=== PATIENT | female | born 1985 | race Caucasian/White ===

== ENCOUNTER 2021-02-08 14:30 | Outpatient (CLI) | payer OTHER ==
[2021-02-09 11:01] LABS: SARS-CoV-2 NAA Rapid Test Not Detected (NotDetected)
== END 2021-02-08 14:31 | disposition home or self-care (01) ==
LOC: CSHLAB 14:30
PROVIDERS: ATTEND Obstetrics & Gynecology
DX: Z20.822 Contact with and (suspected) exposure to COVID-19 (principal)
CPT/HCPCS: U0002; U0003; U0005

== ENCOUNTER 2021-06-05 11:11 | Day surgery (SDC) | payer OTHER ==
[2021-05-30 11:32] VITALS: BMI 29.2
[2021-06-04 10:15] LABS: Hemoglobin 13.3 g/dL (12.0-15.5); Mean Corpuscular HGB CONC 32.3 g/dL (32.0-36.0); Mean Corpuscular Hemoglobin 30.2 pg (27.0-33.0); Mean Corpuscular Volume 93.6 fl (81.6-98.3); Mean Platelet Volume 10.7 fl (7.4-10.4); Platelet Count 280 10x3/uL (150-450); RBC Distribution Width 11.9 % (11.5-14.5); White Blood Cell (WBC) Count 4.6 10x3/uL (3.5-10.5)
[2021-06-04 10:29] LABS: BHCG - Serum Negative (NEGATIVE); Pregs Control Background? CLEAR/WHITE (CLR/WHITE); Pregs Control Bar Appear? YES (CONTROL BAR)
[2021-06-04 21:59] LABS: SARS-CoV-2 PCR by NAA Not Detected (NotDetected)
[2021-06-05] MEDS ORDERED: Gabapentin 300 MG CAP ONE (11:18)
[2021-06-05] MEDS ORDERED: CeleCOXIB 100 MG CAP ONE (11:18)
[2021-06-05] MEDS ORDERED: Lidocaine 1% MPF 2 ML VIAL ONE (11:18)
[2021-06-05] MEDS ORDERED: Bupivacaine PF 0.5% 30 ML VIAL ONE (13:09)
[2021-06-05] MEDS ORDERED: EPINEPHrine 1 MG/ML AMP ONE (13:09)
[2021-06-05] MEDS ORDERED: Ketorolac Tromethamine 30 MG/ML VIAL ONE (13:12)
[2021-06-05] MEDS ORDERED: Rocuronium Bromide 10 MG/ML (10ML VIAL) ONE (13:12)
[2021-06-05] MEDS ORDERED: Ondansetron PF 4 MG/2 ML Vial ONE (13:12)
[2021-06-05] MEDS ORDERED: Fentanyl 100 MCG/2 ML VIAL ONE (13:12)
[2021-06-05] MEDS ORDERED: PROPOFOL 20 ML ONE (13:12)
[2021-06-05] MEDS ORDERED: Dexamethasone 20 MG/5 ML VIAL ONE (13:12)
[2021-06-05] MEDS ORDERED: Midazolam HCl 2 mg/2 ml Vial ONE (13:12)
[2021-06-05] MEDS ORDERED: Glycopyrrolate 0.2 MG/ML 5 ML SYRINGE ONE (13:13)
[2021-06-05] MEDS ORDERED: Meperidine HCl/PF 25 MG/ML VIAL ONE (14:19)
== END 2021-06-05 16:00 | disposition home or self-care (01) ==
LOC: CSHSDC 11:11
PROVIDERS: ATTEND Obstetrics & Gynecology
PROC: 0UT74ZZ Resection of Bilateral Fallopian Tubes, Percutaneous Endoscopic Approach (ICD-10-PCS; principal; 2021-06-05)
DX: Z40.03 Encounter for prophylactic removal of fallopian tube(s) (principal); Z80.3 Family history of malignant neoplasm of breast; Z79.3 Long term (current) use of hormonal contraceptives
CPT/HCPCS: 84703; 85027; 86850; 86900; 86901; 88302; J0171; J0690; J1100; J1885; J2175; J2250; J2405; J2704; J3010; S0020; U0003; U0005